=== PATIENT | female | born 1940 | race Caucasian/White ===

== ENCOUNTER 2022-10-02 23:22 | Inpatient (IN) | payer MEDICARE ==
[2022-10-03 00:19] VITALS: BMI 35.6
[2022-10-03] MEDS ORDERED: Calcium Carbonate 500 MG ChewTAB PO PRN (00:47)
[2022-10-03] MEDS ORDERED: Acetaminophen 325 MG TAB PO PRN (00:47)
[2022-10-03] MEDS ORDERED: Senokot S 8.6-50 MG TAB PO PRN (00:47)
[2022-10-03] MEDS ORDERED: Guaifenesin DM 100-10/5 ML UDCUP PO PRN (00:47)
[2022-10-03] MEDS ORDERED: Lidocaine 2% Viscous Solution 10 ML, Aluminum & Magnesium Hydroxide 30 ML SSW SCH ×2 (01:00→01:30)
[2022-10-03] MEDS ORDERED: Mag-Al 1200 mg/1200 mg/30 ML UDCUP PO SCH (01:15)
[2022-10-03] MEDS ORDERED: Famotidine/PF 20 mg/2ml Vial SLOW IVP SCH (01:15)
[2022-10-03] MEDS ORDERED: Lactated Ringer's 500 ML IV SCH (01:15)
[2022-10-03] MEDS ORDERED: Lidocaine Viscous Sol 2% 15 ml UD Cup SSW SCH (01:15)
[2022-10-03] MEDS ORDERED: Pantoprazole 40 MG VIAL IVP SCH (01:15)
[2022-10-03 01:34] LABS: #Basophils 0.1 10x3/uL (0.0-0.2); #Monocytes 0.1 10x3/uL (0.0-1.1); #Neutrophils 8.5 10x3/uL (1.5-8.4); %Basophils 0.7 % (0.0-2.0); %Eosinophils 0.1 % (0.0-6.0); %Lymphocytes 13.4 % (18.0-47.0); %Monocytes 1.2 % (0.0-10.0); Hemoglobin 15.8 g/dL (12.0-15.5); Mean Corpuscular HGB CONC 33.9 g/dL (32.0-36.0); Mean Corpuscular Hemoglobin 28.4 pg (27.0-33.0); Mean Corpuscular Volume 83.7 fl (81.6-98.3); Mean Platelet Volume 9.9 fl (7.4-10.4); Platelet Count 188 10x3/uL (150-450); RBC Distribution Width 12.6 % (11.5-14.5); Red Blood Cell (RBC) Count 5.57 10x6/uL (3.90-5.03); White Blood Cell (WBC) Count 10.1 10x3/uL (3.5-10.5)
[2022-10-03 01:43] LABS: Anion Gap 15 mmol/L (10-20); BUN (Urea Nitrogen) 24 mg/dL (9.8-20.1); Calc. Creatinine Clearance 65 mL/min (70-130); Calcium 9.7 mg/dL (7.8-10.44); Carbon Dioxide 24 mmol/L (23-31); Chloride 106 mmol/L (98-107); Estimated GFR 60; Glucose 179 mg/dL (83-110); Potassium 4.1 mmol/L (3.5-5.1); Sodium 141 mmol/L (136-145)
[2022-10-03] MEDS ORDERED: Lidocaine Viscous Sol 2% 15 ml UD Cup ONE (01:45)
[2022-10-03] MEDS: HYDROcodone/Acetaminophen 5/325 mg Tablet PO PRN ×3 (02:04→11:03)
[2022-10-03 02:25] LABS: Platelet Adequacy Comment Appears Adequate; RBC Morph Comment Within Normal Limits
[2022-10-03 04:42] LABS: Bilirubin Neg (Negative); Blood, Urine 10 (Negative); Clarity Clear (Clear); Glucose, Urine (Dipstick) 250 mg/dL (Negative); Ketone, Urine 15 mg/dL (Negative); Leukocyte Negative (Negative); Nitrite Negative (Negative); Protein, Urine (Dipstick) 30 mg/dl (Neg-Trace); Specific Gravity, Urine 1.015 (1.005-1.030); Urobilinogen Normal mg/dL (Less than 2); pH, Urine 6.5 (5.0-9.0)
[2022-10-03] MEDS: Labetalol HCl 100 MG/20 ML VIAL SLOW IVP PRN ×3 (04:49→17:45)
[2022-10-03 04:50] LABS: Amphetamine Not Detected (NotDetected); Barbiturates Screen Not Detected (NotDetected); Benzodiazepine Screen Not Detected (NotDetected); Cocaine Metabolite Screen Not Detected (NotDetected); Methadone Not Detected (NotDetected); Methamphetamine Not Detected (NotDetected); Opiate Screen Detected (NotDetected); Oxycodone Screen Not Detected (NotDetected); Phencyclidine (PCP) Not Detected (NotDetected); THC/Cannabinoid Screen Not Detected (NotDetected); Tricyclic Screen Not Detected (NotDetected)
[2022-10-03 05:14] LABS: RBC/HPF 0-3 HPF (0-3); Squamous Epithelial 0-3 HPF (0-3); WBC/HPF None Seen HPF (0-3)
[2022-10-03 05:15] LABS: Bacteria/HPF None Seen HPF (None Seen)
[2022-10-03] MEDS ORDERED: Morphine 2 MG/ML VIAL SLOW IVP PRN (06:03)
[2022-10-03] MEDS: Sucralfate 1 GM TAB PO SCH ×4 (08:19→21:11)
[2022-10-03] MEDS: Lisinopril 20 MG TAB PO SCH (08:19)
[2022-10-03] MEDS: Pantoprazole 40 MG VIAL IVP SCH ×2 (08:20→21:10)
[2022-10-03] MEDS: Metoprolol Tartrate 50 MG TAB PO SCH ×2 (08:20→21:11)
[2022-10-03] MEDS: Ondansetron PF 4 MG/2 ML Vial IVP PRN (08:32)
[2022-10-03] MEDS: Lactated Ringer's 1,000 ML IV SCH (08:34)
[2022-10-03] MEDS ORDERED: Lisinopril 20 MG TAB PO SCH (09:00)
[2022-10-03] MEDS ORDERED: Metoprolol Tartrate 25 MG TAB PO SCH (09:00)
[2022-10-03] MEDS: Promethazine HCl 12.5 MG, Admixture Fee 1 EACH in Sodium Chloride 0.9% 50 ML IVPB PRN (15:23)
[2022-10-03] MEDS ORDERED: ALPRAZolam 0.25 MG TAB PO SCH (17:30)
[2022-10-04] MEDS: Lactated Ringer's 1,000 ML IV SCH (02:48)
[2022-10-04 04:30] LABS: #Basophils 0.1 10x3/uL (0.0-0.2); #Eosinphils 0.2 10x3/uL (0.0-0.5); #Monocytes 0.8 10x3/uL (0.0-1.1); %Basophils 0.4 % (0.0-2.0); %Eosinophils 1.4 % (0.0-6.0); %Lymphocytes 15.7 % (18.0-47.0); %Monocytes 6.3 % (0.0-10.0); %Neutrophils 75.9 % (40.0-75.0); Hemoglobin 14.1 g/dL (12.0-15.5); Mean Corpuscular HGB CONC 32.4 g/dL (32.0-36.0); Mean Corpuscular Hemoglobin 27.8 pg (27.0-33.0); Mean Corpuscular Volume 85.6 fl (81.6-98.3); Platelet Count 201 10x3/uL (150-450); RBC Distribution Width 12.6 % (11.5-14.5); Red Blood Cell (RBC) Count 5.08 10x6/uL (3.90-5.03); White Blood Cell (WBC) Count 11.8 10x3/uL (3.5-10.5)
[2022-10-04 04:45] LABS: ALT (SGPT) 14 U/L (8-55); AST (SGOT) 26 U/L (5-34); Albumin 3.9 g/dL (3.4-4.8); Alkaline Phosphatase 65 U/L (40-110); Anion Gap 11 mmol/L (10-20); BUN (Urea Nitrogen) 24 mg/dL (9.8-20.1); Bilirubin, Total 1.3 mg/dL (0.2-1.2); Calc. Creatinine Clearance 78 mL/min (70-130); Calcium 9.4 mg/dL (7.8-10.44); Carbon Dioxide 27 mmol/L (23-31); Chloride 106 mmol/L (98-107); Estimated GFR 74; Globulin 2.7 g/dL (2.4-3.5); Glucose 126 mg/dL (83-110); Magnesium 2.2 mg/dL (1.6-2.6); Phosphorus 2.3 mg/dL (2.3-4.7); Potassium 3.4 mmol/L (3.5-5.1); Protein, Total 6.6 g/dL (5.8-8.1); Sodium 141 mmol/L (136-145)
[2022-10-04] MEDS ORDERED: Electrolyte Replacement Protocol 1 EACH FS PRN (07:42)
[2022-10-04] MEDS ORDERED: cefTRIAXone\\ROCEPHIN 1 GM in Sodium Chloride 0.9% 100 ML IVPB SCH (07:45)
[2022-10-04] MEDS: Pantoprazole 40 MG VIAL IVP SCH ×2 (08:03→20:30)
[2022-10-04] MEDS: Ondansetron PF 4 MG/2 ML Vial IVP PRN (08:03)
[2022-10-04] MEDS: Sucralfate 1 GM TAB PO SCH ×4 (08:14→20:29)
[2022-10-04] MEDS: Potassium Chloride 20 MEQ in Premix Bag 1 BAG IVPB SCH ×2 (09:42→12:45)
[2022-10-04] MEDS: Lisinopril 20 MG TAB PO SCH ×3 (09:42→12:08)
[2022-10-04] MEDS: Metoprolol Tartrate 50 MG TAB PO SCH ×4 (09:42→20:29)
[2022-10-04] MEDS: Promethazine HCl 12.5 MG, Admixture Fee 1 EACH in Sodium Chloride 0.9% 50 ML IVPB PRN (10:05)
[2022-10-04 16:31] LABS: Potassium 4.1 mmol/L (3.5-5.1)
[2022-10-05 04:37] LABS: #Basophils 0.1 10x3/uL (0.0-0.2); #Eosinphils 0.7 10x3/uL (0.0-0.5); #Monocytes 0.7 10x3/uL (0.0-1.1); #Neutrophils 4.6 10x3/uL (1.5-8.4); %Basophils 0.7 % (0.0-2.0); %Eosinophils 8.5 % (0.0-6.0); %Lymphocytes 27.4 % (18.0-47.0); %Monocytes 7.9 % (0.0-10.0); %Neutrophils 55.4 % (40.0-75.0); Mean Corpuscular HGB CONC 32.7 g/dL (32.0-36.0); Mean Corpuscular Volume 85.8 fl (81.6-98.3); Mean Platelet Volume 10.1 fl (7.4-10.4); Platelet Count 165 10x3/uL (150-450); RBC Distribution Width 12.6 % (11.5-14.5); Red Blood Cell (RBC) Count 4.64 10x6/uL (3.90-5.03); White Blood Cell (WBC) Count 8.3 10x3/uL (3.5-10.5)
[2022-10-05 04:48] LABS: ALT (SGPT) 17 U/L (8-55); AST (SGOT) 24 U/L (5-34); Albumin 3.2 g/dL (3.4-4.8); Alkaline Phosphatase 58 U/L (40-110); Anion Gap 10 mmol/L (10-20); BUN (Urea Nitrogen) 24 mg/dL (9.8-20.1); Bilirubin, Total 1.4 mg/dL (0.2-1.2); Calc. Creatinine Clearance 86 mL/min (70-130); Calcium 8.7 mg/dL (7.8-10.44); Carbon Dioxide 27 mmol/L (23-31); Chloride 106 mmol/L (98-107); Estimated GFR 83; Globulin 2.3 g/dL (2.4-3.5); Glucose 89 mg/dL (83-110); Potassium 3.9 mmol/L (3.5-5.1); Protein, Total 5.5 g/dL (5.8-8.1); Sodium 139 mmol/L (136-145)
[2022-10-05] MEDS: Lisinopril 20 MG TAB PO SCH (08:29)
[2022-10-05] MEDS: Sucralfate 1 GM TAB PO SCH ×3 (08:30→17:37)
[2022-10-05] MEDS: Pantoprazole 40 MG VIAL IVP SCH (08:30)
[2022-10-05] MEDS: Metoprolol Tartrate 50 MG TAB PO SCH (08:30)
[2022-10-05] MEDS ORDERED: Magnevist 469MG/ML 20 ML VIAL ONE (15:08)
[2022-10-05 16:12] VITALS: BP 122/62; TEMP 98.8
== END 2022-10-05 18:05 | disposition home or self-care (01) | DRG 391 ==
LOC: CSHTELE 23:22
PROVIDERS: ADMIT Student in an Organized Health Care Education/Training Program; ATTEND Internal Medicine
PROC: 0DC58ZZ Extirpation of Matter from Esophagus, Via Natural or Artificial Opening Endoscopic (ICD-10-PCS; principal; 2022-10-04)
DX: K44.9 Diaphragmatic hernia without obstruction or gangrene (principal); J96.01 Acute respiratory failure with hypoxia; J98.11 Atelectasis; K22.10 Ulcer of esophagus without bleeding; K21.9 Gastro-esophageal reflux disease without esophagitis; I77.810 Thoracic aortic ectasia; F41.9 Anxiety disorder, unspecified; I10 Essential (primary) hypertension; Z90.49 Acquired absence of other specified parts of digestive tract; Z98.890 Other specified postprocedural states; Z79.82 Long term (current) use of aspirin; Z79.899 Other long term (current) drug therapy
CPT/HCPCS: 36415; 74018; 74183; 80048; 80053; 80306; 81001; 83735; 84100; 84484; 85025; 87086; 93306; 94760; A9579; C9113; J1650; J2272; J2405; J2550; J3480; J7120; S0028